=== PATIENT | female | born 1970 | race Caucasian/White ===

== ENCOUNTER 2023-05-09 08:10 | Inpatient (IN) | payer BC ==
[~2023-05-09] VITALS: Ht 167.6 cm; Wt 121.6 kg
[2023-05-09] MEDS ORDERED: CELECOXIB 100 MG CAPSULE ONE (08:19)
[2023-05-09] MEDS ORDERED: ACETAMINOPHEN 500 MG TABLET ONE (08:19)
[2023-05-09] MEDS ORDERED: SCOPOLAMINE HYDROBROMIDE 1 MG PATCH .72 H (TRANSDERM-SCOP) TD ONE ×2 (08:19→08:45)
[2023-05-09] MEDS ORDERED: GABAPENTIN 300 MG CAPSULE ONE (08:20)
[2023-05-09] MEDS ORDERED: oxyCODONE HCL 10 MG TAB.ER.12H PO ONE ×2 (08:20→08:45)
[2023-05-09] MEDS ORDERED: GABAPENTIN 300 MG CAPSULE PO ONE (08:45)
[2023-05-09] MEDS ORDERED: CELECOXIB 100 MG CAPSULE PO ONE (08:45)
[2023-05-09] MEDS ORDERED: CEFAZOLIN SOD 2 GM in D5W 50 ML IV ONE (08:45)
[2023-05-09] MEDS ORDERED: ACETAMINOPHEN 500 MG TABLET PO ONE (08:45)
[2023-05-09] MEDS ORDERED: METO50TA7 PO (09:27)
[2023-05-09] MEDS ORDERED: ROSU10TA2 PO (09:27)
[2023-05-09] MEDS ORDERED: TRIA1TAB96 PO (09:27)
[2023-05-09] MEDS ORDERED: ESCI20TA PO (09:27)
[2023-05-09] MEDS ORDERED: LOSA-415 PO (09:27)
[2023-05-09] MEDS ORDERED: SYN50 PO (09:27)
[2023-05-09] MEDS ORDERED: METOCLOPRAMIDE HCL 10 MG/2 ML VIAL IVP PRN ×2 (10:15→11:30)
[2023-05-09] MEDS ORDERED: BISACODYL 10 MG/SUPPOSITORY RC PRN (10:15)
[2023-05-09] MEDS ORDERED: DIPHENHYDRAMINE HCL 25 MG CAPSULE PO PRN (10:15)
[2023-05-09] MEDS ORDERED: NALOXONE HCL 0.4 MG/ML AMP (NARCAN) IVP PRN ×3 (10:15→11:30)
[2023-05-09] MEDS ORDERED: LACTULOSE 20 GM/30 ML UDC PO PRN (10:15)
[2023-05-09] MEDS ORDERED: NALOXONE HCL 2 MG/2 ML SYR IVP PRN (10:15)
[2023-05-09] MEDS ORDERED: DEXAMETHASONE SOD PHOSPHATE 4 MG/ML VIAL ONE (10:20)
[2023-05-09] MEDS ORDERED: MIDAZOLAM HCL/PF 2 MG/2 ML SYRINGE ONE (10:20)
[2023-05-09] MEDS ORDERED: MORPHINE SULFATE 10MG/10ML PF AMP ONE (10:20)
[2023-05-09] MEDS ORDERED: NS IRRIG SOLN 1000 ML IR ONE (10:20)
[2023-05-09] MEDS ORDERED: TRANEXAMIC ACID 1,000 MG/10 ML VIAL ONE (10:20)
[2023-05-09] MEDS ORDERED: VANCOMYCIN HCL 1000 MG/VIAL IV ONE (10:20)
[2023-05-09] MEDS ORDERED: DOXYCYCLINE HYCLATE 100 MG VIAL IV ONE (10:20)
[2023-05-09] MEDS ORDERED: KETOROLAC TROMETHAMINE 30 MG VIAL ONE (10:20)
[2023-05-09] MEDS ORDERED: NS 1000 ML IV.SOLN IV ONE (10:20)
[2023-05-09] MEDS ORDERED: ONDANSETRON HCL 4 MG/2 ML VIAL ONE (10:20)
[2023-05-09] MEDS ORDERED: traMADol HCL HCL 50 MG TABLET (ULTRAM) PO PRN (11:00)
[2023-05-09] MEDS ORDERED: LORATADINE 10 MG TABLET PO PRN (11:00)
[2023-05-09] MEDS ORDERED: HYDROmorphone 1 MG/ML INJ. CARTRIDGE IVP PRN ×5 (11:00→11:30)
[2023-05-09] MEDS ORDERED: oxyCODONE HCL 5 MG TABLET PO PRN ×2 (11:00)
[2023-05-09] MEDS ORDERED: ONDANSETRON HCL 4 MG/2 ML VIAL IVP PRN (11:30)
[2023-05-09] MEDS ORDERED: MIDAZOLAM HCL 2 MG/2 ML VIAL (VERSED) IVP PRN (11:30)
[2023-05-09] MEDS ORDERED: DIPHENHYDRAMINE INJ 50 MG/ML VIAL IVP PRN (11:30)
[2023-05-09] MEDS ORDERED: LR 1,000 ML IV SCH (11:30)
[2023-05-09] MEDS ORDERED: MEPERIDINE HCL/PF 25 MG/ML DISP.SYRIN IVP PRN (11:30)
[2023-05-09] MEDS: ACETAMINOPHEN 500 MG TABLET PO SCH ×2 (14:00→21:54)
[2023-05-09] MEDS: METOPROLOL TARTRATE 50 MG TABLET PO SCH ×2 (15:00→21:00)
[2023-05-09 16:50] VITALS: BP_SYST 109; PULSE 70; RESP 16; TEMP 97; O2SAT 94
[2023-05-09] MEDS: ONDANSETRON HCL 4 MG/2 ML VIAL IVP PRN (17:03)
[2023-05-09 17:19] VITALS: BP_SYST 106; PULSE 66; RESP 18; TEMP 98; O2SAT 94
[2023-05-09] MEDS: ceFAZolin SODIUM 2 GM in D5W 50 ML IV SCH (17:42)
[2023-05-09] MEDS: KETOROLAC TROMETHAMINE 10 MG TABLET (TORADOL) PO SCH (18:25)
[2023-05-09 20:00] VITALS: BP_SYST 102; PULSE 67; RESP 20; TEMP 99; O2SAT 95
[2023-05-09] MEDS: SENNOSIDES/DOCUSATE SODIUM 1 TAB TABLET(SENOKOT-S) PO SCH (21:55)
[2023-05-10] MEDS: ONDANSETRON HCL 4 MG/2 ML VIAL IVP PRN ×2 (00:08→09:19)
[2023-05-10 00:23] VITALS: BP_SYST 93; PULSE 65; RESP 20; TEMP 98.6; O2SAT 95
[2023-05-10] MEDS: ceFAZolin SODIUM 2 GM in D5W 50 ML IV SCH ×2 (02:09→09:19)
[2023-05-10] MEDS: KETOROLAC TROMETHAMINE 10 MG TABLET (TORADOL) PO SCH (02:09)
[2023-05-10] MEDS ORDERED: NS 500 ML IV ONE (02:30)
[2023-05-10] MEDS: ACETAMINOPHEN 500 MG TABLET PO SCH (06:24)
[2023-05-10 06:49] LABS: BASOPHILS % (AUTO) 0.1 % (0.0-2.0); HEMATOCRIT 34.9 % (36-48); HEMOGLOBIN 11.4 g/dL (12.0-16.0); LYMPHOCYTES # (AUTO) 0.7 K/uL (1.0-5.5); LYMPHOCYTES % (AUTO) 6.7 % (20.5-51.5); MEAN CORPUSCULAR HEMOGLOBIN 28 pg (27-31); MEAN CORPUSCULAR HGB CONC 33 % (32-36); MEAN CORPUSCULAR VOLUME 86 fL (79.0-98.0); MONOCYTES # (AUTO) 0.5 K/uL (0.0-1.0); MONOCYTES % (AUTO) 4.4 % (1.7-9.3); NEUTROPHILS # (AUTO) 9.4 K/uL (1.8-7.7); NEUTROPHILS % (AUTO) 88.8 % (40.0-70.0); PLATELET COUNT (AUTO) 222 K/uL (130-430); RED BLOOD CELL COUNT(AUTO) 4.06 MIL/uL (4.2-6.2); RED CELL DISTRIBUTION WIDTH 13.7 % (9.0-15.0); WHITE BLOOD COUNT (AUTO) 10.6 K/uL (4.8-10.8)
[2023-05-10] MEDS ORDERED: LEVOTHYROXINE SODIUM 0.05 MG TABLET PO SCH (07:00)
[2023-05-10] MEDS ORDERED: ASA81 PO (07:38)
[2023-05-10 07:49] LABS: ALBUMIN 3.1 g/dL (3.4-4.8); CALCIUM 9.1 mg/dL (8.4-11.0); CREATININE 1.03 mg/dL (0.55-1.30); POTASSIUM 3.5 mmol/L (3.5-5.1); TOTAL BILIRUBIN 0.2 mg/dL (0.0-1.0); TOTAL PROTEIN, SERUM 5.9 g/dL (6.4-8.3)
[2023-05-10 08:00] VITALS: BP_SYST 109; PULSE 65; RESP 18; TEMP 98.8; O2SAT 98
[2023-05-10] MEDS ORDERED: ASPIRIN 81 MG TAB.CHEW PO SCH (09:00)
[2023-05-10] MEDS ORDERED: ATORVASTATIN 20 MG TABLET PO SCH (09:00)
[2023-05-10] MEDS ORDERED: CITALOPRAM HYDROBROMIDE 20 MG TABLET PO SCH ×2 (09:00→21:00)
[2023-05-10] MEDS: SENNOSIDES/DOCUSATE SODIUM 1 TAB TABLET(SENOKOT-S) PO SCH (10:28)
[2023-05-10] MEDS: METOPROLOL TARTRATE 50 MG TABLET PO SCH (10:36)
[2023-05-10 10:59] VITALS: BP_SYST 109; PULSE 65; RESP 18; TEMP 97.6
[2023-05-10 11:25] VITALS: BP_SYST 109; PULSE 70; RESP 16; TEMP 98.3; O2SAT 100
== END 2023-05-10 11:29 | disposition home or self-care (01) | DRG 470 ==
LOC: SMU 08:10
PROVIDERS: ADMIT Student in an Organized Health Care Education/Training Program; ATTEND Student in an Organized Health Care Education/Training Program
PROC: 0SRC0J9 Replacement of Right Knee Joint with Synthetic Substitute, Cemented, Open Approach (ICD-10-PCS; principal; 2023-05-09 10:32)
DX: M17.11 Unilateral primary osteoarthritis, right knee (principal)
CPT/HCPCS: 36415; 73560-TC; 80053; 85025; 87081; 88305; 88311; 96379; 97110-GP; 97116-GP; 97530-GP; C1713; C1776; J0690; J1100; J1885; J2274; J2405; J3370; J3465; J3490; J7030; J7060; Q0163